=== PATIENT | male | born 1945 | race Caucasian/White ===

== ENCOUNTER 2021-10-29 05:55 | Inpatient (IN) | payer OTHER ==
[~2021-10-29] VITALS: Ht 177.8 cm; Wt 77.1 kg
--- NOTE | ~2021-10-29 | EMS ---
[address] [address] EMS Patient Care Report Name: FUENTES LOPEZ Room #: 170-5 [facility] M.R.#: [id number] Admission: 10/29/21 Attend Phys: Geovanna Poe Discharge: 10/29/21 Date of : 45 Report #: [id number] THIS REPORT FOR: //name// Report Transmitted: 11/06/2021 08:06 EMS Care Summary [place], [place]/[facility] Incident [id number] @ 10/29/2021 05:10 Incident Location [address] [place], [place] [id number] Patient ALMA CARRERA Male, 75 Years 1945 Patient Address [address] [place], [place] [id number] Patient History None Reported, Patient Allergies No known allergies, Patient Medications None Reported, Chief Complaint ALOC Disposition Transported No Lights/[place] Dispatch Reason Sick Person Transported To [facility] Narrative dispatched to an apartment community in regards to a sick. On arrival, I saw patient standing in the bedroom with his walker. Initial assessment revealed [address] [address] EMS Patient Care Report Name: FUENTES LOPEZ Room #: 170-5 [facility] M.R.#: [id number] Admission: 10/29/21 Attend Phys: Geovanna Poe Discharge: 10/29/21 Date of : 45 Report #: [id number] that patient was GCS14 and did not appear to be in respiratory distress. Patient's chief complaint was ALOC. Spouse stated that she was concerned about her as he was not behaving normal. Spouse stated that patient has had a stroke recently and wanted him to be transported. Patient was behaving confused and was not appropriately answering questions. Physical assessment revealed that patient was pink warm and dry. Patient was transferred to his wheelchair and taken to the cot outside the apartment. Patient was transferred to our cot and secured with seatbelts and lifted into the ambulance. Treatment rendered was obtaining a complete set of baseline vital signs including a blood glucose reading and established vascular access with a saline lock. Patient was transported to [facility] and radio report was given en route. Patient care was transferred on arrival. Initial Vitals @05:33P: 86,R: 16,BP: 117/62,Pain: 0/10,GCS: 14,Glucose: 187,CO: 2,SpO2: 93,Revised Trauma: 12, @05:38P: 80,R: 18,BP: 131/67,Pain: 0/10,GCS: 14,CO: 2,SpO2: 91,Revised Trauma: 12, Assessments @06:03MENTAL:Person Oriented,SKIN:HEENT:LUNG SOUNDS:ABDOMEN:PELVIS//GI:EXTREMITIES:PULSE:NEURO:Facial Droop, Impression Altered Mental Status Procedures @05:40 ALS Assessment Response: UnchangedSucceeded @05:40 IV Therapy - Saline Lock 10cc (20 ga) Site: Antecubital-Left Response: UnchangedSucceeded Timeline 05:08,Call Received 05:08,Dispatch Notified 05:10,Dispatched 05:13,En Route 05:20,On Scene 05:21,At Patient 05:33,BP: 117/62 M,PULSE: 86,RR: 16 R,SPO2: 93 Ox,ETCO2: ,B,PAIN: 0,GCS: 14, 05:38,BP: 131/67 M,PULSE: 80,RR: 18 R,SPO2: 91 Ox,ETCO2: ,BG: ,PAIN: 0,GCS: 14, 05:38,Depart Scene 05:40,ALS Assessment,Response: UnchangedSucceeded, 05:40,IV Therapy - Saline Lock 10cc 20 ga [facility],Response: UnchangedSucceeded, [facility] [address] [place] [address] EMS Patient Care Report Name: FUENTES LOPEZ Room #: 170-5 [facility] M.R.#: [id number] Admission: 10/29/21 Attend Phys: Geovanna Poe Discharge: 10/29/21 Date of : 45 Report #: [id number] 05:51,At Destination 06:04,Call Closed Disclaimer v1.1 Copyright 2021 [employer] This EMS Care Summary contains data elements from the applicable legal record (which may be displayed differently). It is designed to provide pertinent information for the following purposes: continuity of care, clinical quality, and state data reporting. The complete legal record is available to ED staff and administrators of the receiving hospital in [facility]'s Patient Tracker. All data is provided "as is."
[2021-10-29 06:30] LABS: URINE BILIRUBIN NEGATIVE (Negative); URINE BLOOD 1+ (Negative); URINE CLARITY CLEAR; URINE COLOR YELLOW; URINE GLUCOSE-RANDOM* NEGATIVE (Negative); URINE KETONES NEGATIVE (Negative); URINE LEUKOCYTES-REFLEX NEGATIVE (Negative); URINE NITRITE-REFLEX NEGATIVE (Negative); URINE PROTEIN (DIPSTICK) 2+ (Negative); URINE SPECIFIC GRAVITY 1.015 (1.005-1.035); URINE UROBILINOGEN 0.2 E.U./dl (0.2-1.0)
[2021-10-29 06:51] LABS: ABSOLUTE NEUTROPHILS 9.5 thou/uL (1.4-8.2); BASOPHILS 0.3 % (0.0-2.0); EOSINOPHILS 0.3 % (0.0-3.0); HEMATOCRIT 35.3 % (42.0-52.0); HEMOGLOBIN 11.6 gm/dL (14.0-18.0); MCH 27.8 pg (26.0-34.0); MCHC 32.9 g/dL (28.0-37.0); MCV 84.4 fL (80.0-100.0); MONOCYTES 7.1 % (1.0-8.0); PLATELET COUNT 167 thou/uL (150-400); POLYS 87.3 % (36.0-66.0); RBC 4.18 mil/uL (4.50-6.00); RDW 14.6 % (10.5-14.5); WBC 10.9 thou/uL (4.0-11.0)
[2021-10-29 06:55] LABS: BACTERIA-REFLEX 1-9 Few /HPF (None Seen); CASTS None Seen /LPF (None Seen); CRYSTALS None Seen /LPF (None Seen); SQUAMOUS 0-3 Few /LPF (0-3); URINE RBC 3-10 Few /HPF (NONE SEEN); URINE WBC-REFLEX 0-5 Rare /HPF (0-5)
[2021-10-29 07:26] LABS: CALCIUM 8.9 mg/dL (8.5-10.1); CREATININE 1.3 mg/dL (0.7-1.3); POTASSIUM 4.2 mmol/L (3.5-5.1)
--- NOTE | 2021-10-29 07:37 | EKG ---
[address] [address] ELECTROCARDIOGRAM REPORT Name: ALMA CARRERA Room #: [facility]..#: [id number] Admission: Attend Phys: Discharge: Date of : 45 Report #: [id number] [facility] ED Test Date: 2021-10-29 Test Time: 06:26:21 Pat Name: ALMA CARRERA Department: Room: Gender: Hvac Installer: : 1945 Requested By: Kirk Martinez Order Number: [id number] MD: Huan Aguilera Measurements Intervals Ryan Rate: 73 P: 0 VT: 254 QRS: 237 QRSD: 177 T: 34 QT: 438 QTc: 483 Interpretive Statements Sinus rhythm Frequent supraventricular complexes Prolonged VT interval Nonspecific intraventricular conduction delay No previous ECG available for comparison Electronically Signed On 10-29-2021 7:37:40 [employer] by Huan Aguilera [email or web address] <ELECTRONICALLY SIGNED> By: Huan Aguilera MD, [facility] 10/29/21 0737 0626 0626 Huan Aguilera MD, FACC /EPI
[2021-10-29] MEDS ORDERED: KEFLEX250 MG PO (10:58)
[2021-10-29 11:36] VITALS: BP 115/46
[2021-10-29 11:49] VITALS: BP 118/51
== END 2021-10-29 11:57 | disposition home or self-care (01) | DRG 637 ==
LOC: ER 05:55 → EROBS 09:02
PROVIDERS: Emergency Medicine; ADMIT Hospitalist; ATTEND Hospitalist
DX: E11.621 Type 2 diabetes mellitus with foot ulcer (principal); G93.41 Metabolic encephalopathy; G93.40 Encephalopathy, unspecified; R47.01 Aphasia; E11.51 Type 2 diabetes mellitus with diabetic peripheral angiopathy without gangrene; S81.802A Unspecified open wound, left lower leg, initial encounter; Z20.822 Contact with and (suspected) exposure to COVID-19; S81.801A Unspecified open wound, right lower leg, initial encounter; Z89.512 Acquired absence of left leg below knee; Z83.3 Family history of diabetes mellitus; Z82.49 Family history of ischemic heart disease and other diseases of the circulatory system; Z95.1 Presence of aortocoronary bypass graft; X58.XXXA Exposure to other specified factors, initial encounter; Y93.89 Activity, other specified; Y92.89 Other specified places as the place of occurrence of the external cause; Y99.8 Other external cause status